=== PATIENT | male | born 2000 ===

== ENCOUNTER 2022-04-24 01:05 | Emergency (ER) | payer BC ==
[2022-04-24] MEDS ORDERED: Lactated Ringers 1,000 ML IV STA ×3 (01:21→03:55)
[2022-04-24 02:24] LABS: POTASSIUM,K 3.9 mmol/L (3.5-5.1)
[2022-04-24] MEDS ORDERED: Adenosine 6 MG/2 ML SDV IVPUSH STA (02:54)
[2022-04-24] MEDS ORDERED: Adenosine 6 MG/2 ML SDV ONE ×3 (02:56→03:21)
[2022-04-24] MEDS ORDERED: Metoprolol Tartrate 5 MG/5 ML SDV ONE (03:44)
[2022-04-24] MEDS ORDERED: Adenosine 6 MG/2 ML SDV IVPUSH ONE (03:50)
[2022-04-24] MEDS ORDERED: Metoprolol Tartrate 5 MG/5 ML SDV IVPUSH ONE (03:53)
[2022-04-24] MEDS: Labetalol 100 MG/20 ML MDV ONE ×2 (03:54→04:12)
[2022-04-24] MEDS ORDERED: Diltiazem 25 MG/5 ML SDV IVPUSH ONE (03:55)
[2022-04-24] MEDS ORDERED: LORazepam 2 MG/ML SDV IVPUSH STA (04:02)
[2022-04-24] MEDS ORDERED: Diltiazem 25 MG/5 ML SDV ONE (04:11)
== END 2022-04-24 06:10 | disposition home or self-care (01) ==
LOC: MW.ED 01:05
DX: I48.91 Unspecified atrial fibrillation (principal); I47.1 Supraventricular tachycardia; Z20.822 Contact with and (suspected) exposure to COVID-19
CPT/HCPCS: 36415; 71045; 80053; 83735; 84439; 84443; 84484; 85025; 87635; 93005; 96361; 96374; 96375; 99291; 99292; J0153; J2060; J3490; J7120; 93010; U0002